=== PATIENT | female | born 1965 | race Caucasian/White ===

== ENCOUNTER 2018-04-14 19:57 | Emergency (ER) | payer BC ==
[2018-04-14 20:11] VITALS: BP 116/76
--- NOTE | 2018-04-14 21:08 | EKG REPORT ---
SEVERITY:- NORMAL ECG - SINUS RHYTHM : Confirmed by: Catherine Lenz MD 14-Apr-2018 21:07:31
[2018-04-14] MEDS ORDERED: ASPIRIN 81 MG TABLET, CHEWABLE PO ONE (21:35)
--- NOTE | 2018-04-14 22:10 | ER Document Report ---
ED Medical Screen (RME) - General Chief Complaint: Chest Pain Stated Complaint: CHEST PAIN Time Seen by Provider: 04/14/18 22:06 Notes: 53-year-old female with chief complaint of sick symptoms since last night. Seen in urgent care and referred to the hospital emergency department. States that she has sinus pain and pressure, had a fever of 100.6 over the past day, she also states that around 1 AM last night she had sensation of tightness in her chest with heartburn but this resolved with Tums. She did vomit once over the past day. Denies abdominal pain, any pain in her chest at this time, shortness of breath, headache. Has had the influenza vaccine. TRAVEL OUTSIDE OF THE [place] IN LAST 30 DAYS: No Past Medical History - Social History Chew tobacco use (# tins/day): No Frequency of alcohol use: None Renal/ Medical History: Denies: Hx Peritoneal Dialysis Physical Exam - Vital signs Vitals: Temp Pulse Resp BP Pulse Ox 99.2 F 91 16 116/76 100 04/14/18 20:10 04/14/18 20:10 04/14/18 20:10 04/14/18 20:10 04/14/18 20:10 - Respiratory Respiratory status: No respiratory distress Breath sounds: Normal. No: Decreased air movement, Productive cough - Cardiovascular Rhythm: Regular. No: Tachycardia Heart sounds: Normal auscultation, S1 appreciated, S2 appreciated Course - Vital Signs Vital signs: Temp Pulse Resp BP Pulse Ox 99.2 F 91 16 116/76 100 04/14/18 20:10 04/14/18 20:10 04/14/18 20:10 04/14/18 20:10 04/14/18 20:10
--- NOTE | 2018-04-14 22:30 | RADIOLOGY REPORT (SQ) ---
EXAM DESCRIPTION: XR CHEST 1 VIEW COMPLETED DATE/TME: 04/14/2018 21:35 CLINICAL HISTORY: 53 years, Female, cp COMPARISON: None. NUMBER OF VIEWS: 1 TECHNIQUE: Portable chest LIMITATIONS: None. FINDINGS: Heart size is normal. Lungs are clear. No pneumothorax IMPRESSION: Negative chest copyright 2011 [employer]- All Rights Reserved
[2018-04-14 22:31] LABS: ABSOLUTE EOSINOPHILS # (AUTO) 0.1 10^3/uL (0.0-0.6); ABSOLUTE LYMPHOCYTES (AUTO) 0.9 10^3/uL (0.5-4.7); ABSOLUTE MONOCYTES (AUTO) 0.5 10^3/uL (0.1-1.4); ABSOLUTE NEUT (AUTO) 3.9 10^3/uL (1.7-8.2); BASOPHILS % (AUTO) 0.2 % (0-2); EOSINOPHILS % (AUTO) 2.2 % (0-6); HEMATOCRIT 43.2 % (36.0-47.0); HEMOGLOBIN 15.1 g/dL (12.0-15.5); LYMPHOCYTES % (AUTO) 16.9 % (13-45); MEAN CORPUSCULAR HEMOGLOBIN 36.4 pg (27.0-33.4); MEAN CORPUSCULAR VOLUME 104 fl (80-97); MONOCYTES % (AUTO) 9.9 % (3-13); PLATELET COUNT 185 10^3/uL (150-450); RED BLOOD COUNT 4.15 10^6/uL (3.72-5.28); RED CELL DISTRIBUTION WIDTH 12.9 % (11.5-14.0); SEGMENTED NEUTROPHILS % (AUTO) 70.8 % (42-78); TOTAL CELLS COUNTED % (AUTO) 100 %; WHITE BLOOD COUNT 5.5 10^3/uL (4.0-10.5)
[2018-04-14 22:44] LABS: ALANINE AMINOTRANSFERASE 33 U/L (9-52); ALBUMIN 4.4 g/dL (3.5-5.0); ALKALINE PHOSPHATASE 61 U/L (38-126); ANION GAP 10 (5-19); ASPARTATE AMINO TRANSFERASE 26 U/L (14-36); BILIRUBIN,DIRECT 0.1 mg/dL (0.0-0.4); BILIRUBIN,TOTAL 0.5 mg/dL (0.2-1.3); BLOOD UREA NITROGEN 25 mg/dL (7-20); CALCIUM 9.6 mg/dL (8.4-10.2); CARBON DIOXIDE 27 mmol/L (22-30); CHLORIDE 103 mmol/L (98-107); GLUCOSE 105 mg/dL (75-110); POTASSIUM 3.9 mmol/L (3.6-5.0); SODIUM 139.8 mmol/L (137-145); TOTAL PROTEIN 7.2 g/dL (6.3-8.2)
--- NOTE | 2018-04-15 00:13 | ER Document Report ---
ED General - General Chief Complaint: Chest Pain Stated Complaint: CHEST PAIN Time Seen by Provider: 04/14/18 22:06 Primary Care Provider: ELA ROMAN PA-C [Primary Care Provider] - Follow up as needed Notes: 53-year-old female with chief complaint of sick symptoms since last night. Seen in urgent care and referred to the hospital emergency department. States that she has sinus pain and pressure, had a fever of 100.6 worse since yesterday, she also states that around 1 AM last night she had sensation of tightness in her chest with heartburn but this resolved with Tums. She did vomit once over the past day. Denies abdominal pain, any pain in her chest at this time, shortness of breath, headache. Has had the influenza vaccine. TRAVEL OUTSIDE OF THE [place] IN LAST 30 DAYS: No Past Medical History - General Information source: Patient - Social History Smoking Status: Never Smoker Chew tobacco use (# tins/day): No Frequency of alcohol use: None Drug Abuse: None Lives with: Family Family History: Reviewed & Not Pertinent Patient has suicidal ideation: No Patient has homicidal ideation: No Renal/ Medical History: Denies: Hx Peritoneal Dialysis - Immunizations Immunizations up to date: Yes Hx Diphtheria, Pertussis, Tetanus Vaccination: Yes Review of Systems - Review of Systems Constitutional: See HPI EENT: See HPI Cardiovascular: See HPI Respiratory: No symptoms reported Gastrointestinal: See HPI Genitourinary: No symptoms reported Female Genitourinary: No symptoms reported Musculoskeletal: No symptoms reported Skin: No symptoms reported Hematologic/Lymphatic: No symptoms reported Neurological/Psychological: No symptoms reported Physical Exam - Vital signs Vitals: Temp Pulse Resp BP Pulse Ox 99.2 F 91 16 116/76 100 04/14/18 20:10 04/14/18 20:10 04/14/18 20:10 04/14/18 20:10 04/14/18 20:10 - Notes Notes: GENERAL: Alert, interacts well. No acute distress. HEAD: Normocephalic, atraumatic. EYES: Pupils equal, round, and reactive to light. Extraocular movements intact. ENT: Oral mucosa moist, tongue midline. Oropharynx unremarkable. Airway patent. Nares patent, no nasal septal hematoma, TM's intact. Tenderness with palpation over the bilateral maxillary sinuses, unremarkable frontal sinuses, otherwise unremarkable ENT exam. NECK: Full range of motion. Supple. Trachea midline. LUNGS: Clear to auscultation bilaterally, no wheezes, rales, or rhonchi. No respiratory distress. HEART: Regular rate and rhythm. No murmur ABDOMEN: Soft, non-tender. Non-distended. Bowel sounds present in all 4 quadrants. GENITOURINARY: Deferred EXTREMITIES: Moves all 4 extremities spontaneously. No edema, normal radial and dorsalis pedis pulses bilaterally. No cyanosis. BACK: no cervical, thoracic, lumbar midline tenderness. No saddle anesthesia, normal distal neurovascular exam. NEUROLOGICAL: Alert and oriented x3. Normal speech. [cranial nerves II through XII grossly intact]. PSYCH: Normal affect, normal mood. SKIN: Warm, dry, normal turgor. No rashes or lesions noted. Course - Re-evaluation Re-evalutation: Patient reporting some mild congestion, then she worsened, now over the past 4 days she has been significantly worse, now she has pain with palpation of the maxillary sinuses and recorded fever at home. Suspect probably allergic or viral sinusitis and now secondary bacterial sinusitis. Patient will be treated for this. Very nonspecific symptoms otherwise, workup was performed, chest x-ray unremarkable, EKG unremarkable, troponin negative, general workup unremarkable. Symptoms have been over 12 hours ago at onset. Very low suspicion of pneumonia, pulmonary, ACS. Discussed results with patient in detail, requesting treatment for sinus infection and discharge. Discussed close primary care follow-up and return precautions in detail. Patient states understanding and agreement with plan. - Vital Signs Vital signs: Temp Pulse Resp BP Pulse Ox 99.2 F 91 16 116/76 100 04/14/18 20:10 04/14/18 20:10 04/14/18 20:10 04/14/18 20:10 04/14/18 20:10 - Laboratory Result Diagrams: 04/14/18 22:10 04/14/18 22:10 Laboratory results interpreted by me: 04/14/18 04/14/18 22:10 22:10 MCV 104 H MCH 36.4 H BUN 25 H - EKG Interpretation by Me Additional EKG results interpreted by me: EKG showing sinus rhythm at a rate of 85, no T wave inversions or ST segment changes in consecutive leads, MO interval and QTc unremarkable. Discharge - Discharge Clinical Impression: Body aches Sinusitis Qualifiers: Sinusitis location: maxillary Chronicity: acute Recurrence: non-recurrent Qualified Code(s): J01.00 - Acute maxillary sinusitis, unspecified Fever Qualifiers: Fever type: unspecified Qualified Code(s): R50.9 - Fever, unspecified Condition: Stable Disposition: HOME, SELF-CARE Additional Instructions: Your workup including chest x-ray, EKG, and labs do not show any concerning findings at this time. Because of your worsening sinus symptoms along with fever we are treating him for suspected bacterial sinusitis with antibiotics as prescribed. I recommend the nasal spray, you can also take [id number] medication such as ibuprofen, Tylenol, antihistamines. Drink plenty of fluids and rest. Follow-up with primary care. Return if you worsen including difficulty breathing, severe headache, vomiting, passing out, pain in your chest, or any other concerning symptoms. Prescriptions: Amoxicillin Trihydrate [Amoxil 500 mg Capsule] 1,000 mg PO TID 7 Days #42 cap Fluticasone Propionate [Flonase Nasal [place] 50 Mcg/[place] 16 gm] 1 spray NASL Q12 #1 inhaler Forms: Return to Work Referrals: ELA ROMNA PA-C [Primary Care Provider] - Follow up as needed
== END 2018-04-15 00:25 | disposition home or self-care (01) ==
LOC: ER 19:57
DX: J01.00 Acute maxillary sinusitis, unspecified (principal); R07.9 Chest pain, unspecified; M79.10 Myalgia, unspecified site
CPT/HCPCS: 36415; 71045; 80053; 84484; 85025; 93005; 93010; 99284